=== PATIENT | female | born 1960 | race Caucasian/White ===

== ENCOUNTER 2016-08-02 10:27 | Outpatient (CLI) | payer OTHER ==
[2016-08-02 11:21] LABS: ALT (SGPT) 37 U/L (0-55); AST (SGOT) 27 U/L (5-34); Alkaline Phosphatase 101 U/L (40-150); Anion Gap 14 mmol/L (10-20); BUN (Urea Nitrogen) 13 mg/dL (9.8-20.1); Bilirubin, Total 0.5 mg/dL (0.2-1.2); Calc. Creatinine Clearance 0 mL/min (70-130); Calcium 9.1 mg/dL (7.8-10.44); Carbon Dioxide 25 mmol/L (22-29); Chloride 107 mmol/L (98-107); Estimated GFR-MDRD Greater than 90; LDL Cholesterol, Calculated 49 mg/dL; Protein, Total 7.1 g/dL (6.0-8.3)
[2016-08-02 11:32] LABS: #Basophils 0.1 thou/uL (0.0-0.2); #Eosinphils 0.3 thou/uL (0.0-0.7); #Lymphocytes 2.4 thou/uL (1.20-3.40); #Monocytes 0.4 thou/uL (0.11-0.59); #Neutrophils 3.5 thou/uL (1.40-6.50); %Eosinophils 4.6 % (0.0-10.0); %Monocytes 5.3 % (0.0-10.0); Hematocrit 41.8 % (36.0-47.0); Mean Platelet Volume 6.2 fL (7.4-10.4); Red Blood Cell (RBC) Count 5.13 mill/uL (4.20-5.40); White Blood Cell (WBC) Count 6.7 thou/uL (4.8-10.8)
[2016-08-02 18:31] LABS: Microalbumin Urine Less than 1.0 mg/dL (0.5-50.0)
== END 2016-08-02 10:28 | disposition home or self-care (01) ==
LOC: HPCALD 10:27
PROVIDERS: ATTEND Family Medicine
DX: E11.9 Type 2 diabetes mellitus without complications (principal)
CPT/HCPCS: 36415; 80053; 80061; 82043; 84443; 85025